=== PATIENT | female | born 1960 | race Caucasian/White ===

== ENCOUNTER → 2016-07-29 | Day surgery (SDC) | payer OTHER ==
[~2016-07-29] MED LIST: ALBU17I INH; BUPIVACAINE HCL PF 0.5% 30 ML VIAL ONE; CITA-48 PO; FLUT1INH INH; FLUT50SP EACH NARE; LACTATED RINGER'S 1000 ML INJ 1,000 ML ONE; LEVO100T4 PO; MEPERIDINE HCL 25 MG/ML VIAL ONE; MIDAZOLAM HCL 2 MG/2 ML VIAL ONE; MONT10 PO; ONDANSETRON HCL 4 MG/2 ML VIAL IV PUSH ONE; PROMETHAZINE INJ 25 MG/ML VIAL ONE; PROPOFOL 200 MG/20 ML AMP IV ONE; TIOT1AER2 INH; VITA400C28 PO; ceFAZolin 2 GM PREMIX 50 ML ONE
--- NOTE | 2016-07-31 12:15 | MP ---
cc: LUZMA LAIRD DATE OF SURGERY: 07/29/[address] Luzma Liard. 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 PREOPERATIVE DIAGNOSES 1. Right foot fourth digit exostosis. 2. Right foot curled fifth digit. POSTOPERATIVE DIAGNOSIS 1. Right foot fourth digit exostosis. 2. Right foot curled fifth digit. PROCEDURES PERFORMED 1. Right foot fourth digit exostectomy. 2. Right foot fifth digit hammertoe repair. ANESTHESIA General. HEMOSTASIS Pneumatic ankle tourniquet at 59 minutes for 250 mmHg. ESTIMATED BLOOD LOSS Less than 5 mL. MATERIALS USED 3-0 Monocryl, 3-0 Prolene. COMPLICATIONS None. INJECTABLES 10 cc of 0.5% Marcaine plain. INDICATIONS Ms. Crawley is a 56-year-old female with a very painful kissing callus lesion on the lateral fourth digit and medial fifth digit. She has exhausted conservative care and is requesting permanent surgical intervention of this painful issue. I explained that it was due to a hypertrophic bone of the fourth digit as well as the curled deformity of the fifth digit applying excessive pressure. I spoke to the patient in detail about the procedure and then consent was signed. The procedure was explained. No guarantees were given. PROCEDURE Under mild sedation, the patient was brought into the operating room and placed on the operating table in supine position. Following IV sedation, pneumatic ankle tourniquet was applied around the right ankle. The foot was then scrubbed, prepped and draped in the usual aseptic manner. An Esmarch bandage was used to exsanguinate the right foot and the pneumatic ankle tourniquet was inflated to 250 mmHg. Attention was directed to the fourth PIP joint where a linear longitudinal incision was deepened through skin and subcutaneous tissue with care being taken to identify and retract any vital neurovascular structures. The extensor tendon was severed transversely to allow access to the joint space. There was noted hypertrophic tissue on the lateral eminence of both the intermediate and proximal phalanges as well as mildly hypertrophic bone both of which were removed and smoothed. The area was palpated externally and was clearly debulked with less pressure on the callus site. The area was flushed with copious amounts of sterile saline. The extensor tendon was reapproximated with 3-0 Monocryl and the skin was reapproximated with 3-0 Prolene. Attention was then directed to the fifth digit where two angled elliptical incisions were created from distal lateral to proximal medial. The skin ellipse was removed from the field in toto and the extensor tendon was severed transversely to allow access to the joint. The distal aspect of the proximal phalanx was removed using an oscillating saw and the area was flushed with copious amounts of sterile saline. The tendon was reapproximated using 3-0 Monocryl and the skin was reapproximated using 3-0 Prolene. There was a noted increase in spacing between the fourth and fifth digits as well as a decrease in curling of the fifth digit. 10 cc of 0.5% Marcaine plain were injected around the digits. The pneumatic ankle tourniquet was then released and there was a prompt hyperemic response to all digits of the right foot. A sterile dressing of Adaptic, 4x4s, Irvin and an Sathya wrap was applied. The patient tolerated the procedure and the anesthesia well. She will recover in the PACU for a period of time before being discharged home with written and oral postoperative instructions. Luzma MADERA/BJF /9:08 AM /11:40 AM ELEONORA
== END | disposition home or self-care (01) ==
LOC: ESDC 06:43
PROVIDERS: ATTEND Podiatrist Foot & Ankle Surgery
DX: M25.774 Osteophyte, right foot (principal); M20.41 Other hammer toe(s) (acquired), right foot
CPT/HCPCS: 01480; 28122; 28285; J0690; J2175; J2250; J2405; J2550; J3010; J7120